=== PATIENT | female | born 1970 | race Caucasian/White ===

== ENCOUNTER 2023-12-22 23:39 | Emergency (ER) | payer OTHER, SELFPAY ==
[2023-12-22 23:41] VITALS: BP 122/62
--- NOTE | 2023-12-23 00:54 | ED.GENMED ---
History of Present Illness
<GINO Boogie - Last Filed: 12/23/23 01:05>
General
Chief Complaint: Musculo-Skeletal Complaint
Source: patient and significant other
Exam Limitations: none
Time Seen by Provider: 12/23/23 00:28
Nursing documentation reviewed up to this point in time: agreed with
Travel History
Have you had any contact with someone who has COVID-19?: No
Do you have any symptoms of coronavirus? Fever > 100 degrees, chills, cough, shortness of breath, sore throat, loss of taste or smell, muscle aches, or headache?: No
History of Present Illness
History of Present Illness:
Pt is a 53 yo female who presents today with right wrist pain. Pt states that she went to urgent care around 8pm with URI sx, noticed some wrist soreness while she was driving. Upon returning home from urgent care, her pain had begun to increase and
she noticed some swelling and bruising. It is now 7/10 painful whenever she moves her wrist or arm with pain now radiating up her arm. Admits to some tingling in her hand and fingers. Pt states that she had a work injury to her neck and right
shoulder in 2012 and has occasional radiating pain from that. Denies neck pain, chest pain, SOB, recent fever, headache. URI sx being treated with azithromycin and medrol. Pt has not taken any medication for current pain. Xray shows no evidence of
fracture. Pt is extremely tender on her lateral wrist and with any wrist or arm movement. Slight swelling and bruising noted over ulnar side of posterior wrist. Pronation most painful. No overlying erythema or warmness to touch. Radial pulses
intact, brisk cap refill.
Review of Systems
<GINO Boogie - Last Filed: 12/23/23 01:05>
Review of Systems
Allergies reviewed?: Yes
All Other Systems: ROS reviewed and negative except as documented in HPI and ROS
Phy Exam
<GINO Boogie - Last Filed: 12/23/23 01:05>
General Physical Exam
General Presentation: well appearing and no apparent distress
General Skin: warm and dry
General Mental: alert
General Hydration: appears well hydrated
ENT Exam
ENT Exam: neck supple, normocephalic and swallowing well
Eye Exam
Eye Exam: PERRL and conjunctiva normal
Cardiovascular Exam
Cardiovascular Exam: regular rate/rhythm, no edema, no gallop, no murmur and normal peripheral pulses
Pulmonary Exam
Pulmonary Exam: lungs clear, no respiratory distress, no rales, no crackles, no rhonchi, no wheezing and no cough
Neurological Exam
Neurological Exam: alert, oriented x3 and speech normal
Musculoskeletal Exam
Musculoskeletal Exam: joint swelling (right wrist), neuro vasc intact and other (right wrist ROM limited due to pain, tender to palpation over posterior ulnar area)
Skin Exam
Skin Exam: normal color and warm/dry
Psychiatric Exam
Psychiatric Exam: normal mood/affect
Course
<GINO Boogie - Last Filed: 12/23/23 01:05>
Orders/Labs/Results
Orders:
Orders
12/22/23 23:45
Wrist, Right 3 Views [CR Wrist - Right Min 3 Views] Urgent
Comment:
Reason For Exam: PAIN, SWELLING, NO INJURY
12/23/23 01:16
Ketorolac [Toradol] 60 mg IM NOW STA
12/23/23 01:42
Ice Pack-Treatment DIRECTED
Location: RIGHT WRIST
12/23/23 01:43
Splints/Slings/Crut- Treatment ONCE
Crutches: No
Location: Right
Type of Splint: Goldonna Wrist
Vital Signs
Initial and Last Documented VS:
Initial Vital Signs
Temp Pulse Resp BP Pulse Ox
98 F 88 18 122/62 98
12/22/23 23:41 12/22/23 23:41 12/22/23 23:41 12/22/23 23:41 12/22/23 23:41
Last Documented Vital Signs
Temp Pulse Resp BP Pulse Ox
98 F 88 18 122/62 98
12/22/23 23:41 12/22/23 23:41 12/22/23 23:41 12/22/23 23:41 12/22/23 23:41
<Sammie Wood DO - Last Filed: 12/23/23 02:13>
Orders/Labs/Results
Orders:
Orders
12/22/23 23:45
Wrist, Right 3 Views [CR Wrist - Right Min 3 Views] Urgent
Comment:
Reason For Exam: PAIN, SWELLING, NO INJURY
12/23/23 01:16
Ketorolac [Toradol] 60 mg IM NOW STA
12/23/23 01:42
Ice Pack-Treatment DIRECTED
Location: RIGHT WRIST
12/23/23 01:43
Splints/Slings/Crut- Treatment ONCE
Crutches: No
Location: Right
Type of Splint: Goldonna Wrist
Vital Signs
Initial and Last Documented VS:
Initial Vital Signs
Temp Pulse Resp BP Pulse Ox
98 F 88 18 122/62 98
12/22/23 23:41 12/22/23 23:41 12/22/23 23:41 12/22/23 23:41 12/22/23 23:41
Last Documented Vital Signs
Temp Pulse Resp BP Pulse Ox
98 F 88 18 122/62 98
12/22/23 23:41 12/22/23 23:41 12/22/23 23:41 12/22/23 23:41 12/22/23 23:41
<Sammie Wood DO - Last Filed: 12/23/23 02:13>
*Radiology
Radiology exam reviewed: preliminary read by ED provider (Right wrist x-ray shows no evidence of fracture.)
*Pulse Oximetry
Patient hypoxic: no
*Critical Care Note
Total Time (30-74mins, 75-104mins- exclusive of procedures): Not Applicable
ED Attending Note
<GINO Boogie - Last Filed: 12/23/23 01:05>
-
Portions of this chart may have been created with voice recognition software.� Occasional wrong word or��sound alike� substitutions may have occurred due to the inherent limitations of voice recognition software.
<Sammie Wood DO - Last Filed: 12/23/23 02:13>
ED Attending Note
Patient seen and examined by attending physician: Yes
I performed the substantive portion of visit, reviewed & personally made and approve the management plan that is documented in note by myself or MEL.: Yes
I performed a history and physical exam of patient and discussed management with resident, I reviewed resident's note and agree with documented findings and plan of care.: Yes
ED Attending Note:
This is a 53-year-old woman who has no significant past medical history save for mild intermittent arthropathies and previous right shoulder surgery 2012. She takes no medicines on a daily basis.
She does admit to some URI symptoms over the past several days, has not had a fever, no sore throat, no nasal congestion, intermittent dry cough but denies shortness of breath or chest pain. She was evaluated at urgent care today and states COVID
and flu testing were both negative. She was prescribed a Z-Josesito as well as Medrol Dosepak for which she took the first dose of each this evening. She does admit to mild right ulnar wrist pain that began this afternoon. No insightful injury and she
did not mention her wrist pain to urgent care as it was not bothering her that much at the time. This evening however right wrist pain has gotten progressively worse, much worse with movement of her wrist and she notes some local swelling over her
dorsal ulnar wrist region.
She is right-handed but as above denies any insightful injury. She did do some shopping at [employer], was doing some lifting etc. earlier in the day. She has not taken anything for pain, was afraid to mix anything with her Zithromax and Medrol.
53-year-old woman appears her stated age. Appears mildly uncomfortable, easily communicative. is accompanying.
HEENT: Oral mucosa is moist. Posterior pharynx is clear. Nares are patent without rhinorrhea.
Neck is supple, nontender, no adenopathy.
Heart is regular rate and rhythm.
Lungs are clear to auscultation, respirations are easy and nonlabored. No cough appreciated during exam. Speaking in full sentences without difficulty.
Abdomen is soft and nontender.
Extremities without clubbing or cyanosis nor edema. Peripheral pulses are full and equal bilaterally.
Right wrist has very minimal soft tissue swelling as well as very minimal erythema over the dorsal ulnar region with exquisite tenderness over the dorsal to medial ulna. There is full range of motion with increased pain with flexion and extension.
No tenderness nor edema to the hand. There is no palpable tenderness to the forearm nor elbow. No lymphangitis. No evidence of ecchymosis.
Skin is warm and dry, normal color. Good turgor. No rash.
Neuro: Awake alert and oriented x 3. No focal neurodeficits.
Acute right wrist pain: May be tendinitis/overuse in nature, occult contusion, other consideration is acute inflammatory arthropathy such as gout/pseudogout.
There is only minimal soft tissue swelling about the dorsal the medial ulna. There is no palpable heat, no lymphangitis. Nothing to suggest infectious process. No significant joint effusion.
Right wrist x-ray is unremarkable, no evidence of fracture nor bony abnormality.
Will give an IM dose of Toradol and plan for local wrist splint for comfort.
Clinically patient does not appear to have significant URI symptoms, there is no evidence of bacterial sinusitis and lungs are clear to auscultation, no cough appreciated during exam. I suspect a mild viral URI that appears to be improving. Would
recommend she discontinue Zithromax and discontinue Medrol Dosepak.
Will treat tendinitis versus potential inflammatory arthropathy with a course of diclofenac. Patient has remote history of gastritis/ulcers thus we will add a short course of PPI for GI protection. She does report taking Advil PM from time to time
without adverse GI symptoms.
Discharge Plan
Departure
Patient Disposition: Home (Routine Discharge)
Date of Disposition: 12/23/23
Time of Disposition: 02:09
Patient with high blood pressure during this ER visit?: No
Condition: Good
Discharge Problem:
Acute pain of right wrist
Instructions: Wrist Sprain (DC), Tendinopathy (DC)
Prescriptions:
New
pantoprazole [Protonix] 40 mg tablet,delayed release (DR/EC)
40 mg PO DAILY Qty: 14 0RF
diclofenac sodium 75 mg tablet,delayed release (DR/EC)
75 mg PO BID PRN (Reason: pain, take with food.) Qty: 30 0RF
Referrals:
Amy Jernigan MD [Family Provider] - Call in 1-3 days for appt
Interventions
Interventions:
*Risk Screen - Suicide Last Done: 12/22/23 23:41
*General Assessment Last Done: 12/23/23 02:06
*Neglect/Abuse Screening Last Done: 12/22/23 23:41
*ED COVID-19 Vaccine History Last Done: 12/23/23 02:06
ED-Musculoskeletal Assessment Last Done: 12/23/23 01:57
[2023-12-23] MEDS: TORADOL 60 MG IM (01:38)
== END 2023-12-23 02:16 | disposition home or self-care (01) ==
LOC: EMR 23:39
PROVIDERS: EMERGENCY PHYSICIAN Emergency Medicine; FAMILY PHYSICIAN Family Medicine
DX: M25.531 Pain in right wrist (principal)
CPT/HCPCS: 99284; 96372; 29125; 73110